=== PATIENT | female | born 1960 | race Caucasian/White ===

== ENCOUNTER 2017-04-14 13:03 | Emergency (ER) | payer MEDICARE ==
[~2017-04-14] VITALS: Ht 157.5 cm; Wt 72.7 kg
[2017-04-14] MEDS ORDERED: TRAMADOL 50 MG TAB PO (13:10)
[2017-04-14] MEDS ORDERED: ATIVAN1 M1 PO (13:10)
[2017-04-14] MEDS ORDERED: CYCLOBENZAPRINE10 M1 PO (13:10)
[2017-04-14] MEDS ORDERED: NEURONTIN300 M1 (13:10)
[2017-04-14 14:22] LABS: EOS # 0.3 (0.04-0.40); EOS % 3.4 % (1.0-5.0); HEMATOCRIT 37.9 % (37.0-47.0); HEMOGLOBIN 11.9 g/dL (12.5-16.0); LYMPH# 2.7 (1.50-4.00); MEAN CELL VOLUME 91 fl (78-100); MEAN CORPUSCULAR HEMOGLOBIN 28 pg (27-31); MEAN CORPUSCULAR HGB CONC 31 g/dL (33-37); MEAN PLATELET VOLUME 9.3 fl (7.4-10.4); MONO # 0.5 (0.20-0.80); PLATELET COUNT 292 K/mm3 (130-400); RED BLOOD COUNT 4.19 M/mm3 (4.10-5.30); RED CELL DISTRIBUTION WIDTH 13.3 % (11.5-14.5); WHITE BLOOD COUNT 8.5 K/mm3 (4.8-10.8)
[2017-04-14 14:31] LABS: ALBUMIN 3.8 g/dL (3.5-5.0); BUN/CREATININE RATIO 12.2 (6.0-26.0); CALCIUM 9.2 mg/dL (8.4-10.2); TOTAL BILIRUBIN 0.2 mg/dL (0.2-1.3); TOTAL PROTEIN 7.2 g/dL (6.3-8.2)
[2017-04-14 15:46] LABS: URINE APPEARANCE CLEAR; URINE BILIRUBIN NEGATIVE (NEGATIVE); URINE BLOOD NEGATIVE (NEGATIVE); URINE COLOR YELLOW; URINE GLUCOSE NEGATIVE (NEGATIVE); URINE KETONE NEGATIVE (NEGATIVE); URINE LEUKOCYTE ESTERASE NEGATIVE (NEGATIVE); URINE NITRATE NEGATIVE (NEGATIVE); URINE PROTEIN(semi-quant) NEGATIVE (NEGATIVE); URINE UROBILINOGEN NORMAL (NORMAL); URINE WBC 0-1 /hpf (0-3)
[2017-04-14] MEDS ORDERED: KETOROLAC10 MG PO (16:23)
[2017-04-14] MEDS ORDERED: AUGMENTIN 875-1 EAC1 PO (16:23)
[2017-04-14 16:36] VITALS: BP 129/71
== END 2017-04-14 16:26 | disposition home or self-care (01) ==
LOC: ED 13:03
PROVIDERS: Physician Assistant
DX: H66.92 Otitis media, unspecified, left ear (principal); R51 Headache; I10 Essential (primary) hypertension; H54.40 Blindness, one eye, unspecified eye; F17.210 Nicotine dependence, cigarettes, uncomplicated

== ENCOUNTER 2017-06-13 14:51 | Emergency (ER) | payer MEDICARE ==
[~2017-06-13] VITALS: Ht 157.5 cm; Wt 82.7 kg
[~2017-06-13 14:51] MED LIST: ATIVAN1 M1 PO; AUGMENTIN 875-1 EAC1 PO; CYCLOBENZAPRINE10 M1 PO; KETOROLAC10 MG PO; NEURONTIN300 M1; TRAMADOL 50 MG TAB PO
[2017-06-13] MEDS ORDERED: PAXIL10 MG/5 ML (15:12)
[2017-06-13] MEDS ORDERED: KETOROLAC10 MG PO (16:55)
[2017-06-13] MEDS ORDERED: ZOFRAN ODT8 M1 PO (16:55)
[2017-06-13 17:09] VITALS: BP 143/71
== END 2017-06-13 16:58 | disposition home or self-care (01) ==
LOC: ED 14:51
DX: G43.909 Migraine, unspecified, not intractable, without status migrainosus (principal); I10 Essential (primary) hypertension; H54.40 Blindness, one eye, unspecified eye; M79.7 Fibromyalgia; Z88.5 Allergy status to narcotic agent

== ENCOUNTER 2017-06-22 13:03 | Emergency (ER) | payer MEDICARE ==
[~2017-06-22] VITALS: Ht 157.5 cm; Wt 80.9 kg
[~2017-06-22 13:03] MED LIST changes: +PAXIL10 MG/5 ML; +ZOFRAN ODT8 M1 PO
[2017-06-22 13:42] LABS: EOS # 0.2 (0.04-0.40); EOS % 2.8 % (1.0-5.0); HEMATOCRIT 39.8 % (37.0-47.0); HEMOGLOBIN 13.2 g/dL (12.5-16.0); LYMPH# 2.4 (1.50-4.00); MEAN CELL VOLUME 89 fl (78-100); MEAN CORPUSCULAR HEMOGLOBIN 30 pg (27-31); MEAN CORPUSCULAR HGB CONC 33 g/dL (33-37); MEAN PLATELET VOLUME 10.3 fl (7.4-10.4); MONO # 0.5 (0.20-0.80); PLATELET COUNT 264 K/mm3 (130-400); RED BLOOD COUNT 4.48 M/mm3 (4.10-5.30); RED CELL DISTRIBUTION WIDTH 13.5 % (11.5-14.5); WHITE BLOOD COUNT 7.1 K/mm3 (4.8-10.8)
[2017-06-22 13:52] LABS: ALBUMIN 4.1 g/dL (3.5-5.0); BUN/CREATININE RATIO 16.5 (6.0-26.0); CALCIUM 9.5 mg/dL (8.4-10.2); TOTAL BILIRUBIN 0.4 mg/dL (0.2-1.3); TOTAL PROTEIN 7.6 g/dL (6.3-8.2)
[2017-06-22 13:59] LABS: TROPONIN-I < 0.03 ng/mL (0.00-0.06)
[2017-06-22 14:01] LABS: PH-URINE 5.5 (5.0 - 8.0); URINE APPEARANCE HAZY; URINE BILIRUBIN NEGATIVE (NEGATIVE); URINE BLOOD TRACE (NEGATIVE); URINE COLOR YELLOW; URINE GLUCOSE NEGATIVE (NEGATIVE); URINE KETONE NEGATIVE (NEGATIVE); URINE LEUKOCYTE ESTERASE TRACE (NEGATIVE); URINE MUCUS PRESENT (NOT PRESENT); URINE NITRATE NEGATIVE (NEGATIVE); URINE PROTEIN(semi-quant) TRACE mg/dL (NEGATIVE); URINE UROBILINOGEN NORMAL (NORMAL)
[2017-06-22 15:25] VITALS: BP 133/72
== END 2017-06-22 15:18 | disposition home or self-care (01) ==
LOC: ED 13:03
PROVIDERS: Physician Assistant
DX: F41.9 Anxiety disorder, unspecified (principal); R07.9 Chest pain, unspecified; F15.90 Other stimulant use, unspecified, uncomplicated; I10 Essential (primary) hypertension; H54.62 Unqualified visual loss, left eye, normal vision right eye; F17.200 Nicotine dependence, unspecified, uncomplicated; K14.9 Disease of tongue, unspecified; Z88.5 Allergy status to narcotic agent; M79.7 Fibromyalgia